=== PATIENT | female | born 1995 | race Caucasian/White ===

== ENCOUNTER → 2020-06-12 | Outpatient (CLI) | payer OTHER ==
[~2020-06-12] MED LIST: AMOXICILLIN500 M1 PO; AMOXICILLIN500 MG PO; ATIVAN0.5 MG PO; CARAFATE1 G1 PO; CIPROFLOXACIN500 MG PO; DOCUSATE SODIU100 MG PO; FEOSOL300 MG PO; FLINTSTONES1 CTB PO; FLONASE0.05 MG/AC NS; IBUPROFEN200 M1 PO; IBUPROFEN600 MG PO; LOMOTIL 0.025 M1 TA1 PO; MACROBID100 M1 PO; MIRALAX POWDER255 GM PO; MOTRIN800 MG PO; NAPROSYN500 MG PO; PEDIASURE PO; PREDNISONE20 M1 PO; PREVACID15 MG PO; PRILOSEC20 MG PO; PYRIDIUM200 MG PO; Percocet 325 MG1 TAB PO; SINGULAIR10 MG PO; SURFAK STOOL S240 MG PO; TORADOL10 MG PO; TYLENOL325 M1 PO; ULTRAM50 MG PO; VICODIN 5-3001 EACH PO; XANAX0.5 MG PO; ZOFRAN ODT4 MG SL; ZYRTEC10 MG PO; Zofran4 MG PO
== END | disposition home or self-care (01) ==
LOC: COVID19 16:27
PROVIDERS: ATTEND Student in an Organized Health Care Education/Training Program
DX: Z20.828 Contact with and (suspected) exposure to other viral communicable diseases (principal)